=== PATIENT | female | born 1985 | race Two or more races ===

== ENCOUNTER 2019-09-27 05:07 | Day surgery (SDC) | payer OTHER ==
[2019-09-26 07:45] VITALS: BMI 40.3
[2019-09-27] MEDS ORDERED: SODIUM CHLORIDE 0.9% P/F 10 ML VIAL IJ ONE (08:03)
[2019-09-27] MEDS ORDERED: ceFAZolin SODIUM 1 GM VIAL ONE (08:03)
[2019-09-27] MEDS ORDERED: DEXAMETHASONE SOD PHOSPHATE 4 MG/1 ML VIAL ONE (08:03)
[2019-09-27] MEDS ORDERED: KETOROLAC TROMETHAMINE 30 MG/1 ML VIAL ONE (08:03)
[2019-09-27] MEDS ORDERED: PROPOFOL 20 ML ONE ×4 (08:04→10:34)
[2019-09-27] MEDS ORDERED: MIDAZOLAM HCL 2 MG/2 ML SINGLE DOSE VIAL ONE ×2 (08:04)
[2019-09-27] MEDS ORDERED: oxyCODONE HCL 5 MG TABLET PO PRN ×2 (08:20)
[2019-09-27] MEDS ORDERED: ONDANSETRON 4 MG/2 ML VIAL IVPUSH PRN (08:20)
[2019-09-27] MEDS ORDERED: LACTATED RINGERS SOLUTION 1,000 ML IV SCH (08:30)
--- NOTE | 2019-09-27 08:46 | HP ---
HISTORY OF PRESENT ILLNESS: Patient is a 34 year old female with a significant past medical history of right foot surgery, left acl 2018 and obesity. She presents to [facility] today for a scheduled left foot radio frequency for left foot planter facitis. She denies any other medical history and on no home medications. She denies pain or shortness of breath. She denies any allergies. PCP: Myra Herrera MD [facility] course was notable for: (1) negative test (2) labs reviewed and within normal limits (3) Medications: none. Recent travel: yes, [place] beginning of August 2019, 2 weeks at [facility]. 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 Smoking: none Alcohol: occasional Drugs: none REVIEW OF SYSTEMS CONSTITUTIONAL: Absent: fever, chills, diaphoresis, generalized weakness, malaise, loss of appetite, weight change HEENT: Absent: rhinorrhea, nasal congestion, throat pain, throat swelling, difficulty swallowing, mouth swelling, ear pain, eye pain, visual changes CARDIOVASCULAR: Absent: chest pain, syncope, palpitations, irregular heart rate, lightheadedness, peripheral edema RESPIRATORY: Absent: cough, shortness of breath, dyspnea with exertion, orthopnea, wheezing, stridor, hemoptysis GASTROINTESTINAL: Absent: abdominal pain, abdominal distension, nausea, vomiting, diarrhea, constipation, melena, hematochezia GENITOURINARY: Absent: dysuria, frequency, urgency, hesitancy, hematuria, flank pain, genital pain MUSCULOSKELETAL: Absent: myalgia, arthralgia, joint swelling, back pain, neck pain SKIN: Absent: rash, itching, pallor HEMATOLOGIC/IMMUNOLOGIC: Absent: easy bleeding, easy bruising, lymphadenopathy, frequent infections ENDOCRINE: Absent: unexplained weight gain, unexplained weight loss, heat intolerance, cold intolerance NEUROLOGIC: Absent: headache, focal weakness or paresthesias, dizziness, unsteady gait, se izure, mental status changes, bladder or bowel incontinence PSYCHIATRIC: Absent: anxiety, depression, suicidal or homicidal ideation, hallucinations. PHYSICAL EXAMINATION: Vital Signs Temperature 98.6 F 09/27/19 07:45 Pulse Rate 71 09/27/19 07:45 Respiratory Rate 20 09/27/19 07:45 Blood Pressure 126/80 09/27/19 07:45 O2 Sat by Pulse Oximetry (%) 100 09/27/19 07:44 GENERAL: Awake, alert, and fully oriented, in no acute distress. HEAD: Normal with no signs of trauma. EYES: Pupils equal, round and reactive to light, extraocular movements intact, sclera anicteric, conjunctiva clear. No lid lag. EARS, NOSE, THROAT: Ears normal, nares patent, oropharynx clear without exudates. Moist mucous membranes. NECK: Normal range of motion, supple without lymphadenopathy, JVD, or masses. LUNGS: Breath sounds equal, clear to auscultation bilaterally. No wheezes, and no crackles. No accessory muscle use. HEART: Regular rate and rhythm, normal S1 and S2 without murmur, rub or gallop. ABDOMEN: Soft, nontender, not distended, normoactive bowel sounds, no guarding, no rebound, no masses. No hepatomegaly or splenomegaly. MUSCULOSKELETAL: Normal range of motion at all joints. No bony deformities or tenderness. No CVA tenderness. UPPER EXTREMITIES: 2+ pulses, warm, well-perfused. No cyanosis. No clubbing. No peripheral edema. LOWER EXTREMITIES: 2+ pulses, warm, well-perfused. No calf tenderness. No peripheral edema. NEUROLOGICAL: Cranial nerves II-XII intact. Normal speech. Normal gait. PSYCHIATRIC: Cooperative. Good eye contact. Appropriate mood and affect. SKIN: Warm, dry, normal turgor, no rashes or lesions noted, normal capillary refill. Active Medications Generic Name Dose Route Start Last Admin Trade Name Freq PRN Reason Stop Dose Admin Fentanyl 25 mcg 09/27/19 08:20 Sublimaze Injection - IVPUSH [id number] PRN PAIN-PACU ORDER X 4 DOSES ONLY Fentanyl 50 mcg 09/27/19 08:20 Sublimaze Injection - IVPUSH [id number] PRN PAIN-PACU ORDER X 4 DOSES ONLY Lactated Ringer's 1,000 mls @ 75 mls/hr 09/27/19 08:30 Lactated Ringers Solution IV ASDIR VALERIA Ondansetron HCl 4 mg 09/27/19 08:20 Zofran Injection IVPUSH Q6H PRN NAUSEA AND/OR VOMITING Oxycodone HCl 10 mg 09/27/19 08:20 Roxicodone - PO Q4H PRN PAIN LEVEL 6-10 Oxycodone HCl 5 mg 09/27/19 08:20 Roxicodone - PO Q4H PRN PAIN LEVEL 1-5 ASSESSMENT/PLAN: Patient is a 34 year old female with a significant past medical history of right foot surgery, left acl 2018 and obesity. She presents to [facility] today for a scheduled left foot radio frequency for left foot planter facitis. She denies any other medical history and on no home medications. She denies pain or shortness of breath. Surgery: scheduled radiofrequency of left foot today. labs reviewed no ekg on file post op care per surgery Obesity: outpatient follow up full code fen patient states she has been npo since midnight
[2019-09-27] MEDS ORDERED: BUPIVACAINE HCL/PF 0.25% (2.5MG/ML) 10 ML VIAL ONE (09:44)
[2019-09-27] MEDS ORDERED: LIDOCAINE HCL 1%, 10 MG/ML (20ML VIAL) ONE (09:44)
[2019-09-27] MEDS ORDERED: ceFAZolin SODIUM 1 GM VIAL IVPB ONE (09:54)
[2019-09-27] MEDS ORDERED: BUPIVACAINE HCL/PF 2.5 MG/ML - 30 ML VIAL IJ ONE (09:59)
[2019-09-27] MEDS ORDERED: LIDOCAINE HCL 1%, 10 MG/ML (20ML VIAL) NR ONE ×3 (09:59→10:36)
[2019-09-27 11:40] VITALS: TEMP 98.1
[2019-09-27 12:03] VITALS: BP 121/64; PULSE 69
--- NOTE | 2019-09-27 21:59 | OP ---
DATE OF OPERATION: 09/27/2019 SURGEON: Imelda Rivas DPM USER ACCEPTANCE TESTER: Anna Spivey DPM PREOPERATIVE DIAGNOSIS: Left foot plantar fasciitis. POSTOPERATIVE DIAGNOSIS: Left foot plantar fasciitis. PROCEDURE: Left foot radiofrequency nerve ablation x8 locations. ANESTHESIA: MAC with local. HEMOSTASIS: Ankle tourniquet set to 250 mmHg. ESTIMATED BLOOD LOSS: Less than 2 mL. After proper verbal and written consent was obtained, the patient was brought into the operating room and placed in a supine position on the operating room table. After adequate IV sedation was administered by the anesthesia team, a local infiltrate block was administered to the left foot as a posterior tibial block and a V-formation circumferentially around the medial heel utilizing a 1:1 mix with lidocaine plain and 0.25% Marcaine plain for a total of 22 mL utilized and an additional 6 mL of 1% lidocaine plain. The left foot was then prepped and draped in the usual sterile technique. The ankle of the surgical foot was well padded using an adequate amount of Webril, and tourniquet was then placed overlying. Exsanguination of the left foot with an Esmarch bandage was subsequently performed. Thereafter, the ankle tourniquet was inflated to 250 mmHg. Attention was then directed to the plantar medial heel in close proximity to the medial tubercle of the calcaneus where a standard radiofrequency ablation sterile cannula was inserted to the level of bone, followed by a radiofrequency probe into the cannula. The radiofrequency machine was stimulated, and the motor nerve involvement was tested and confirmed to be negative. At this point, the sensory nerve lesion was ablated at 90 radiofrequency for a total of 90 seconds. The aforementioned steps were repeated for a total of 8 cycles in adjacent locations, targeting symptomatic nerves of the medial plantar calcaneus. The surgical site was then cleansed with Betadine and covered with a sterile, lightly-compressive dressing consisting of 4 x 4's, Leora, and light Marcio wrap. The pneumatic ankle tourniquet was subsequently deflated, and a prompt hyperemic response was noted to all 5 digits of the left foot. No strikethrough was noted to the dressing thereafter. The patient tolerated the procedure and anesthesia well. The patient left the operating room with the anesthesia team, transferred to the PACU recovery room in good condition with vital signs stable and neurovascular status intact. Capillary refill time was less than 3 seconds to all digits of the left foot. Anna Spivey DPM dictating for ALICIA Landrum DPM [id number]
== END 2019-09-27 12:10 | disposition home or self-care (01) ==
LOC: JASU-SURG 05:07
PROVIDERS: ATTEND Podiatrist Foot Surgery
PROC: 3E0T3TZ Introduction of Destructive Agent into Peripheral Nerves and Plexi, Percutaneous Approach (ICD-10-PCS; principal; 2019-09-27 09:30)
DX: M72.2 Plantar fascial fibromatosis (principal)
CPT/HCPCS: 84703